=== PATIENT | female | born 1985 | race American Indian/Alaskan Native ===

== ENCOUNTER 2018-11-25 15:40 | Emergency (ER) | payer BC ==
[2018-11-25] MEDS ORDERED: ASPIRIN PO ONE (15:48)
--- NOTE | 2018-11-25 15:49 | Event Note ---
ED Screening Note Date of service: 11/25/18 Time: 15:46 ED Screening Note: This is a 33 y.o. F. that presents to the ER with chest pain for 1 week. Patient sent from Urgent Care for further evaluation. No PMH This initial assessment/diagnostic orders/clinical plan/treatment(s) is/are subject to change based on patients health status, clinical progression and re- assessment by fellow clinical providers in the ED. Further treatment and workup at subsequent clinical providers discretion. Patient/guardian urged not to elope from the ED as their condition may be serious if not clinically assessed and managed. Initial orders include: Labs, ekg, and CXR
[2018-11-25 16:02] VITALS: BP 150/85
[2018-11-25 16:42] LABS: Hematocrit 38.2 % (30.3-42.9); Hemoglobin 12.8 gm/dl (10.1-14.3); Mean Corpuscular HGB Conc 34 % (30-34); Mean Corpuscular Volume 88 fl (79-97); Platelet Count 243 K/mm3 (140-440); Red Blood Count 4.33 M/mm3 (3.65-5.03)
[2018-11-25 16:47] LABS: BUN/Creatinine Ratio 15; Blood Urea Nitrogen 12 mg/dL (7-17); Calcium 9.6 mg/dL (8.4-10.2); Hemolysis Index 3
[2018-11-25] MEDS ORDERED: ATIVAN PO ONE (17:41)
--- NOTE | 2018-11-25 17:52 | XRay Report ---
CHEST 1 VIEW INDICATION / CLINICAL INFORMATION: Chest Pain. COMPARISON: None available. FINDINGS: SUPPORT DEVICES: None. HEART / MEDIASTINUM: No significant abnormality. LUNGS / PLEURA: No significant pulmonary or pleural abnormality. No pneumothorax. ADDITIONAL FINDINGS: No significant additional findings. IMPRESSION: 1. No acute findings. Signer Name: Juno Hsu MD Signed: 11/25/2018 5:47 PM Workstation Name: [id number]
--- NOTE | 2018-11-25 18:19 | Emergency Department Report ---
ED Chest Pain HPI - General Chief Complaint: Chest Pain Stated Complaint: CHEST PAIN Time Seen by Provider: 11/25/18 15:46 Source: patient Mode of arrival: Ambulatory Limitations: No Limitations - History of Present Illness Initial Comments: Is a 33-year-old female with no prior medical history of any medical history ann presents to ED, chest pain that started last week Friday. Patient states that she was at work today when she started to feel chest pain. She describes the pain as a needle pricks feeling Patient states about a year ago she was diagnosed with anxiety attack and has not taken medication since then. Patient states that pain is aggravated with stress. She denies any trauma injuries or anything. MD Complaint: chest pain Pain Radiation: none Severity scale (0 -10): 4 Quality: tightness, aching Consistency: constant Worsens With: nothing Context: other (stress at work) Other Symptoms: denies: cough, fever, syncope, leg swelling Treatments Prior to Arrival: none - Related Data On Oral Contraceptives: No Previous Rx's Medication Instructions Recorded Last Taken Type LORazepam [Ativan] 0.5 mg PO QHS #6 tab 11/25/18 Unknown Rx Naproxen [Naprosyn] 500 mg PO BID #30 tablet 11/25/18 Unknown Rx Heart Score - HEART Score History: Slightly suspicious EKG: Normal Age: < 45 Risk factors: No known risk factors Troponin: < normal limit HEART Score: 0 ED Review of Systems ROS: Stated complaint: CHEST PAIN Other details as noted in HPI Comment: All other systems reviewed and negative ED Past Medical Hx - Past Medical History Previous Medical History?: No - Surgical History Past Surgical History?: No - Social History Smoking Status: Never Smoker Substance Use Type: None - Medications Home Medications: Home Medications Medication Instructions Recorded Confirmed Last Taken Type LORazepam [Ativan] 0.5 mg PO QHS #6 tab 11/25/18 Unknown Rx Naproxen [Naprosyn] 500 mg PO BID #30 tablet 11/25/18 Unknown Rx ED Physical Exam - General Limitations: No Limitations General appearance: alert, in no apparent distress - Head Head exam: Present: atraumatic, normocephalic - Eye Eye exam: Present: normal appearance - ENT ENT exam: Present: mucous membranes moist - Neck Neck exam: Present: normal inspection - Respiratory Respiratory exam: Present: normal lung sounds bilaterally. Absent: respiratory distress, wheezes, rales - Cardiovascular Cardiovascular Exam: Present: regular rate, normal rhythm, normal heart sounds. Absent: systolic murmur, diastolic murmur, rubs, gallop - GI/Abdominal GI/Abdominal exam: Present: soft, normal bowel sounds. Absent: distended, tenderness - Extremities Exam Extremities exam: Present: normal inspection - Back Exam Back exam: Present: normal inspection - Neurological Exam Neurological exam: Present: alert, oriented X3 - Psychiatric Psychiatric exam: Present: normal affect, normal mood - Skin Skin exam: Present: warm, dry, intact, normal color. Absent: rash ED Course Vital Signs 11/25/18 11/25/18 15:59 16:15 Temperature 98.3 F Pulse Rate 84 Respiratory 18 15 Rate Blood Pressure 150/85 O2 Sat by Pulse 100 Oximetry GAGAN score - Gagan Score Age > 65: (0) No Aspirin use within the Past 7 Days: (0) No 3 or more CAD Risk Factors: (0) No 2 or more Angina events in past 24 hrs: (0) No Known CAD with more than 50% Stenosis: (0) No Elevated Cardiac Markers: (0) No ST Deviation Greater than 0.5mm: (0) No GAGAN Score: 0 ED Medical Decision Making - Lab Data Result diagrams: 11/25/18 16:18 11/25/18 16:18 - EKG Data EKG shows normal: sinus rhythm Rate: normal - Radiology Data Radiology results: report reviewed, image reviewed COMPARISON: None available. FINDINGS: SUPPORT DEVICES: None. HEART / MEDIASTINUM: No significant abnormality. LUNGS / PLEURA: No significant pulmonary or pleural abnormality. No pneumothorax. ADDITIONAL FINDINGS: No significant additional findings. IMPRESSION: 1. No acute findings. Signer Name: Juno Hsu MD Signed: 11/25/2018 5:47 PM Workstation Name: [id number] Transcribed By: Dictated By: Juno Hsu MD Electronically Authenticated By: Juno Hsu MD Signed Date/Time: 11/25/18 0707 - Medical Decision Making 31-year-old female presents to ED with secondary anxiety/panic attack triggered by stress of work. CBC, BMP, troponin test COMPLETED. Labs all within normal limits. Troponin negative. The test negative Chest x-ray shows no acute findings, EKG was normal. Discussed findings with the patient. She received lorazepam 1 mg in the ED. I discussed follow-up with the therapist. Benton states that he has a therapist that he will be able to use. Referrals given. Patient is in no acute distress. Vital signs are normal. Critical care attestation.: If time is entered above; I have spent that time in minutes in the direct care of this critically ill patient, excluding procedure time. ED Disposition Clinical Impression: Chest pain, musculoskeletal, Panic attack as reaction to stress Disposition: DC-01 TO HOME OR SELFCARE Is pt being admited?: No Does the pt Need Aspirin: No Condition: Stable Instructions: Chest Pain (ED), Costochondritis (ED), Anxiety (ED) Additional Instructions: Make sure to follow up with the primary care physician as discussed. Take all your medications as you've been prescribed. If you have any worsening symptoms or develop new symptoms please return to ED immediately. Prescriptions: LORazepam [Ativan] 0.5 mg PO QHS #6 tab Naproxen [Naprosyn] 500 mg PO BID #30 tablet Referrals: PRIMARY CARE, [Primary Care Provider] - 3-5 Days [facility] [Outside] - 3-5 Days [facility] [Outside] - 3-5 Days Forms: Accompanied Note, Work/School Release Form(ED) Time of Disposition: 18:23
[2018-11-25 21:41] LABS: Total Cells Counted 100
[2018-11-25 21:42] LABS: Anisocytosis 1+; Platelet Estimate Consistent w Auto
== END 2018-11-25 19:14 | disposition home or self-care (01) ==
LOC: ED 15:40
DX: F41.0 Panic disorder [episodic paroxysmal anxiety] (principal); F43.0 Acute stress reaction; Z79.899 Other long term (current) drug therapy
CPT/HCPCS: 36415; 71045; 80048; 84484; 85007; 85025; 93005; 93010; 99284

== ENCOUNTER 2020-01-18 20:05 | Emergency (ER) | payer BC, OTHER ==
[2020-01-18 20:20] VITALS: BP 132/89
[2020-01-19] MEDS ORDERED: ACETAMINOPHEN 325 MG TAB PO ONE (00:14)
[2020-01-19] MEDS ORDERED: ACETAMINOPHEN 325 MG TAB ONE (00:16)
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
== END 2020-01-19 00:45 | disposition home or self-care (01) ==
LOC: ED 20:05
DX: S16.1XXA Strain of muscle, fascia and tendon at neck level, initial encounter (principal); M79.18 Myalgia, other site; Z79.899 Other long term (current) drug therapy; V49.59XA Passenger injured in collision with other motor vehicles in traffic accident, initial encounter; Y93.89 Activity, other specified; Y92.410 Unspecified street and highway as the place of occurrence of the external cause; Y99.8 Other external cause status
CPT/HCPCS: 99282

== ENCOUNTER 2020-08-20 09:28 | Emergency (ER) | payer OTHER ==
--- NOTE | 2020-08-20 10:02 | Emergency Department Report ---
Blank Doc - Documentation Documentation: 35-year-old female that presents with fever, chills, chest pain, shortness of breath and body aches with tachycardia. Patient was diagnosed with Covid 5 days ago. Otherwise denies any other complaints or symptoms. 1- This initial assessment/diagnostic orders/clinical plan/ treatment(s) is/are subject to change based on pt's health status, clinical progression and re- assessment by fellow clinical providers in the ED. Further treatment and workup at subsequent clinical provers discretion. Patient/guardians urged not to elope from ED as their condition may be serious if not clinically assessed and managed. 2-labs 3-EKG 4-chest x-ray
[2020-08-20 10:34] LABS: Basophils % (Auto) 0.4 % (0.0-1.8); Eosinophils % (Auto) 0.1 % (0.0-4.3); Hematocrit 40.8 % (30.3-42.9); Hemoglobin 14.1 gm/dl (10.1-14.3); Lymphocytes % (Auto) 25.2 % (13.4-35.0); Mean Corpuscular HGB Conc 35 % (30-34); Mean Corpuscular Volume 87 fl (79-97); Monocytes # (Auto) 0.2 K/mm3 (0.0-0.8); Platelet Count 171 K/mm3 (140-440); Red Cell Distribution Width 13.9 % (13.2-15.2)
[2020-08-20] MEDS ORDERED: IBUPROFEN 800 MG TAB PO ONE (10:41)
--- NOTE | 2020-08-20 10:43 | Emergency Department Report ---
ED Fever HPI - General Chief Complaint: Pain General Stated Complaint: CHEST PAIN, BODY PAIN, WEAK, BODY NUMB Time Seen by Provider: 08/20/20 10:01 Source: patient Exam Limitations: no limitations - History of Present Illness Initial Comments: CC: " I thought it was getting better." HPI: This is a 35-year-old female with history of BMI 67 who presents with fever shortness of breath body aches loss of taste and smell for the past 9 days. She became ill last week Friday. On Friday [facility] urgent care, she had Covid positive test. Her sense of taste and smell return. She doctors getting better. Last night her symptoms return. Now she has worsening shortness of breath with chest ache. Her daughter age 16. Her daughter works at [employer]. Daughter is Covid pos itive. Her is also Covid positive. is vaccinated. Patient is not vaccinated. Timing/Duration: constant Associated Symptoms: chest pain, cough, muscle aches, shortness of breath ED Review of Systems ROS: Stated complaint: CHEST PAIN, BODY PAIN, WEAK, BODY NUMB Other details as noted in HPI Comment: All other systems reviewed and negative Constitutional: chills, fever, malaise Respiratory: cough, shortness of breath Cardiovascular: chest pain Gastrointestinal: nausea, diarrhea ED Past Medical Hx - Past Medical History Previous Medical History?: Yes Additional medical history: Obesity - Social History Smoking Status: Never Smoker Substance Use Type: None - Medications Home Medications: Home Medications Medication Instructions Recorded Confirmed Last Taken Type LORazepam [Ativan] 0.5 mg PO QHS #6 tab 11/25/18 Unknown Rx Naproxen [Naprosyn] 500 mg PO BID #30 tablet 11/25/18 Unknown Rx Ketorolac [Toradol] 10 mg PO Q6H PRN #15 tablet 01/19/20 Unknown Rx methOCARBAMOL [Robaxin TAB] 750 mg PO Q8H PRN #14 tablet 01/19/20 Unknown Rx ED Physical Exam - General Limitations: No Limitations General appearance: alert, in no apparent distress - Head Head exam: Present: atraumatic, normocephalic - Eye Eye exam: Present: normal appearance - ENT ENT exam: Present: mucous membranes moist - Neck Neck exam: Present: normal inspection, full ROM - Respiratory Respiratory exam: Present: decreased breath sounds (Right inferior posterior thorax decreased breath sounds). Absent: wheezes, rales, rhonchi - Cardiovascular Cardiovascular Exam: Present: regular rate, normal rhythm. Absent: systolic murmur, diastolic murmur, rubs, gallop - GI/Abdominal GI/Abdominal exam: Present: soft, normal bowel sounds. Absent: distended, tenderness, guarding, rebound - Extremities Exam Extremities exam: Present: normal inspection - Neurological Exam Neurological exam: Present: alert, oriented X3 - Psychiatric Psychiatric exam: Present: normal affect, normal mood - Skin Skin exam: Present: warm, dry, intact, normal color. Absent: rash ED Course Vital Signs 08/20/20 08/20/20 08/20/20 09:47 10:45 11:00 Temperature 100.1 F H Pulse Rate 113 H 88 99 H Respiratory 22 25 H 25 H Rate Blood Pressure 129/92 135/89 137/101 O2 Sat by Pulse 94 96 96 Oximetry 08/20/20 11:15 Temperature Pulse Rate 87 Respiratory 27 H Rate Blood Pressure 134/92 O2 Sat by Pulse 94 Oximetry ED Medical Decision Making - Lab Data Result diagrams: 08/20/20 10:16 08/20/20 10:16 - EKG Data -: EKG Interpreted by Pr EKG shows normal: sinus rhythm, intervals, QRS complexes, ST-T waves Rate: tachycardia - EKG Data 08/20/20 10:44 EKG obtained 1003 EKG interpreted by ks Sinus tachycardia 105 bpm posterior axis normal intervals no ST elevation normal T wave pattern - Radiology Data Radiology results: report reviewed Chest radiograph: No acute finding Patient Name: AYLA KAUFFMAN Gender: Female Date of : 1985 Referring Provider: CARRIE BELL Organization: [facility] Accession Number: [id number] Requested Date: August 20, 2020 11:59 Report Status: Final Requested Procedure: 1 Procedure Description: CT angio chest Modality: CT Findings Reporting MD: Tom Beckett Dictation Time: August 20, 2020 11:57 Digital Forensic Analyst: Not available Supervisor Logging Date: CT angio chest INDICATION / CLINICAL INFORMATION: Shortness of breath. Covid.. TECHNIQUE: Axial CT images were obtained through the chest after injection of IV contrast. 3 plane MIP and/or 3D reconstructions were produced. All CT scans at this location are performed using CT dose reduction for ALARA by means of automated exposure control. COMPARISON: 08/20/2020 radiograph FINDINGS: PULMONARY ARTERIES: No central pulmonary emboli. Respiratory motion degrades image quality obscuring the segmental and subsegmental pulmonary arteries. HEART: No significant abnormality. MEDIASTINUM / CARLENE: No significant abnormality. LUNGS: There are subpleural groundglass opacities seen in in all 5 lobes of the lung. No pleural effusion. No pneumothorax. ADDITIONAL FINDINGS: None. UPPER ABDOMEN: Hepatic cysts are seen. No significant abnormality in the visualized upper abdomen. SKELETAL STRUCTURES: No significant osseous abnormality. IMPRESSION: 1. No CT evidence for central pulmonary embolism. 2. Mild bilateral airspace disease with classic imaging features of Covid pneumonia. Classic reported imaging features of Covid pneumonia are present. Reference: https://pubs.rsna.org/doi/full/10.1148/ryct.[email or web address] Signer Name: Tom Beckett MD Signed: 08/20/2020 11:57 AM Workstation Name: [id number] - Medical Decision Making Covid 19 infection: Pneumonia seen on CT scan, not visualized on chest radiograph which corresponds to decreased breath sounds on physical exam. Recommended home supportive care. Patient's oxygen saturations 98% on room air at rest. Oxygen is 94% after exertion. Patient understands return precautions. Due to significant shortness of breath abnormal axis on EKG elevated D-dimer, CT angiogram indicated to rule out pulmonary embolism. With patient's permission I referred her to bariatric surgeon Dr. Ross as a resource for weight management. I also referred her to outpatient medicine physician Dr. Lucas. CBC chemistry lactic acid all within normal limits. test negative. Critical care attestation.: If time is entered above; I have spent that time in minutes in the direct care of this critically ill patient, excluding procedure time. ED Disposition Clinical Impression: COVID-19, Pneumonia due to COVID-19 virus Disposition: - TO HOME OR SELFCARE Is pt being admited?: No Does the pt Need Aspirin: No Condition: Stable Instructions: Bacterial Pneumonia (ED), COVID-19 Frequently Asked Questions Referrals: HEIDI ESCALANTE MD [Staff Physician] - 3-5 Days ADOLFO ROSS MD [Staff Physician] - 3-5 Days
[2020-08-20 10:45] LABS: INR 1.06 (0.87-1.13); Partial Thromboplastin Time 27.8 Sec. (24.2-36.6)
[2020-08-20 10:53] LABS: Alanine Aminotransferase 45 units/L (7-56); Albumin 3.7 g/dL (3.9-5); BUN/Creatinine Ratio 9; Blood Urea Nitrogen 9 mg/dL (7-17); Calcium 8.7 mg/dL (8.4-10.2); Hemolysis Index 10
--- NOTE | 2020-08-20 11:19 | XRay Report ---
XR chest 1V ap INDICATION / CLINICAL INFORMATION: Chest Pain COMPARISON: None available. FINDINGS: SUPPORT DEVICES: None. HEART / MEDIASTINUM: No significant abnormality. LUNGS / PLEURA: Lungs are clear. Costophrenic sulci are sharp. No pneumothorax. ADDITIONAL FINDINGS: No significant additional findings. IMPRESSION: 1. No acute findings. Signer Name: Tom Beckett MD Signed: 08/20/2020 11:15 AM Workstation Name: [id number]
--- NOTE | 2020-08-20 13:02 | Cat Scan Report ---
CT angio chest INDICATION / CLINICAL INFORMATION: Shortness of breath. Covid.. TECHNIQUE: Axial CT images were obtained through the chest after injection of IV contrast. 3 plane MIP and/or 3D reconstructions were produced. All CT scans at this location are performed using CT dose reduction f or ALARA by means of automated exposure control. COMPARISON: 08/20/2020 radiograph FINDINGS: PULMONARY ARTERIES: No central pulmonary emboli. Respiratory motion degrades image quality obscuring the segmental and subsegmental pulmonary arteries. HEART: No significant abnormality. MEDIASTINUM / CARLENE: No significant abnormality. LUNGS: There are subpleural groundglass opacities seen in in all 5 lobes of the lung. No pleural effu summer. No pneumothorax. ADDITIONAL FINDINGS: None. UPPER ABDOMEN: Hepatic cysts are seen. No significant abnormality in the visualized upper abdomen. SKELETAL STRUCTURES: No significant osseous abnormality. IMPRESSION: 1. No CT evidence for central pulmonary embolism. 2. Mild bilateral airspace disease with classic imaging features of Covid pneumonia. Classic reported imaging features of Covid pneumonia are present. Reference: https://pubs.rsna.org/doi/full/10.1148/ryct.[email or web address] Signer Name: Tom Beckett MD Signed: 08/20/2020 12:57 PM Workstation Name: [id number]
[2020-08-20 13:32] VITALS: BP 135/86
--- NOTE | 2020-08-21 10:41 | Electrocardiograph Report ---
[facility] Test Date: 2020-08-20 Test Time: 10:03:12 Pat Name: AYLA KAUFFMAN Department: Room: Gender: F [employer] Supervisor: AAYUSH : 1985 Requested By: ALVARO MONTANA Order Number: [id number] Reading MD: Adriano Ramirez Measurements Intervals [place] Rate: 106 P: 55 OK: 156 QRS: 241 QRSD: 95 T: 45 QT: 330 QTc: 439 Interpretive Statements Sinus tachycardia nonspecific st-t No previous ECG available for comparison Electronically Signed On 08-21-2020 10:41:27 EDT by Adriano Ramirez
== END 2020-08-20 13:32 | disposition home or self-care (01) ==
LOC: ED 09:28
DX: U07.1 COVID-19 (principal); J12.82 Pneumonia due to coronavirus disease 2019; Z79.899 Other long term (current) drug therapy
CPT/HCPCS: 36415; 71045; 71275; 80053; 82140; 84484; 84703; 85025; 85379; 85610; 85730; 93005; 99285; Q9967